=== PATIENT | male | born 1970 | race Caucasian/White ===

== ENCOUNTER → 2024-07-08 14:56 | Outpatient (REF) | payer OTHER, SELFPAY | LOC: HWRAD 14:56 | PROVIDERS: ATTENDING PHYSICIAN Physician Assistant; FAMILY PHYSICIAN Family Medicine | DX: C76.0 Malignant neoplasm of head, face and neck (principal) | CPT/HCPCS: 71260; Q9967 ==

== ENCOUNTER → 2024-07-08 19:47 | Outpatient (REF) | payer OTHER, SELFPAY | LOC: MRI 19:47 | PROVIDERS: ATTENDING PHYSICIAN Physician Assistant; FAMILY PHYSICIAN Family Medicine | DX: C76.0 Malignant neoplasm of head, face and neck (principal) | CPT/HCPCS: 70543; A9575 ==